=== PATIENT | male | born 1955 | race Caucasian/White ===

== ENCOUNTER → 2017-01-28 | Outpatient (CLI) | payer MEDICAID ==
[~2017-01-28] MED LIST: IODIXANOL 320 MG/ML 100ml INJECTION IV ONE; NORMAL SALINE 0 ML ONE; SALINE FLUSH 10ml SYRINGE ONE
--- NOTE | 2017-01-29 09:47 | DI ---
Indication: ITS.REASON: R31.0 Gross hematuria; D64.9 ANEMIA; N28.9 DISORDER KIDNEY/URETER PROCEDURE: CT RENAL W/O CONTRAST: Encounter: Initial Comparison: None Technique: Axial CT images were performed through the abdomen and pelvis without intravenous contrast. Coronal and sagittal two-dimensional reformats. Automated Exposure Control and Iterative Reconstruction dose reducing techniques were utilized. Findings: Mild emphysema in the lung bases. The liver is unremarkable. Gallbladder appears normal. The spleen, pancreas and adrenal glands are normal. Prominent duodenal diverticulum. Two immediately adjacent ventral hernias one containing a nonobstructed portion of the proximal transverse colon and the other a portion of the mid jejunum. No CT evidence of strangulation or acute obstruction. Numerous surgical clips in the retroperitoneum bilaterally. Atherosclerotic calcification in the arterial vasculature. Unenhanced kidneys are grossly normal. Ureters are difficult to follow given the extensive retroperitoneal surgical clips, however there are no obvious ureteral stones or hydroureter. Unenhanced bladder appears normal. Sigmoid diverticulosis without evidence of acute diverticulitis. The appendix is normal. Surgical clips in the right inguinal canal. Bone windows are unremarkable for age. Impression: 1. No urolithiasis or clear etiology for the patient's hematuria. 2. Extensive retroperitoneal surgical changes. 3. Two adjacent ventral hernias, one containing a loop of transverse colon and one containing a loop of small bowel. These does not appear acutely obstructed but could be incarcerated and predispose to acute bowel obstruction or potentially bowel ischemia. Surgical evaluation may be helpful. .
== END ==
LOC: IMA 16:27
PROVIDERS: ATTEND Family Medicine
DX: R31.0 Gross hematuria (principal); Z98.890 Other specified postprocedural states; K43.9 Ventral hernia without obstruction or gangrene; D64.9 Anemia, unspecified; N28.9 Disorder of kidney and ureter, unspecified; F17.290 Nicotine dependence, other tobacco product, uncomplicated
CPT/HCPCS: 74176; Q9967